=== PATIENT | male | born 1950 | race Caucasian/White ===

== ENCOUNTER 2024-04-23 17:34 | Inpatient (IN) | payer OTHER, MEDICAID ==
[~2024-04-23] VITALS: Ht 177.8 cm; Wt 121.1 kg
[2024-04-23 17:45] VITALS: BP_SYST 106; PULSE 120; RESP 22; TEMP 97.4; O2SAT 96
[2024-04-23] MEDS: NACL 0.9% 1,000 ML IV ONE (18:22)
[2024-04-23 18:25] LABS: BLOOD GAS BASE EXCESS -0.4 mmol/L (-3.0-3.0); BLOOD GAS HCO3 24.5 mmol/L (21.0-27.0); BLOOD GAS PCO2 41.2 mmHg (32.0-45.0); BLOOD GAS PH 7.393 (7.350-7.450)
[2024-04-23 18:26] LABS: BASOPHILS % (AUTO) 0.3 % (0.0-2.0); EOSINOPHILS # (AUTO) 0.1 K/uL (0.0-0.4); EOSINOPHILS % (AUTO) 0.6 % (0.0-4.0); HEMATOCRIT 36.8 % (36-54); HEMOGLOBIN 12.5 g/dL (14.0-18.0); LYMPHOCYTES # (AUTO) 0.5 K/uL (1.0-5.5); LYMPHOCYTES % (AUTO) 5.3 % (20.5-51.5); MEAN CORPUSCULAR HEMOGLOBIN 31 pg (27-31); MEAN CORPUSCULAR HGB CONC 34 % (32-36); MEAN CORPUSCULAR VOLUME 90 fL (79.0-98.0); MONOCYTES % (AUTO) 9.9 % (1.7-9.3); NEUTROPHILS # (AUTO) 8.3 K/uL (1.8-7.7); NEUTROPHILS % (AUTO) 83.9 % (40.0-70.0); PLATELET COUNT (AUTO) 252 K/uL (130-430); RED BLOOD CELL COUNT(AUTO) 4.07 MIL/uL (4.2-6.2); RED CELL DISTRIBUTION WIDTH 15.1 % (9.0-15.0); WHITE BLOOD COUNT (AUTO) 9.9 K/uL (4.8-10.8)
[2024-04-23 18:39] LABS: INR 1.1 (0.80-1.20); PROTHROMBIN TIME 11.3 SECS (9.5-12.5)
[2024-04-23 18:40] LABS: ALLEN'S TEST POSITIVE (P)
[2024-04-23 18:56] LABS: ALANINE AMINOTRANSFERASE 74 U/L (12-78); ALBUMIN 2.5 g/dL (3.4-4.8); ANION GAP 7 (5-15); ASPARTATE AMINOTRANSFERASE 59 U/L (10-37); BILIRUBIN,DIRECT 0.5 mg/dL (0.0-0.3); CALCIUM 8.2 mg/dL (8.4-11.0); CARBON DIOXIDE 28 mmol/L (23-29); CHLORIDE 99 mmol/L (98-107); CREATININE 2.09 mg/dL (0.55-1.30); GLUCOSE 179 mg/dL (74-106); POTASSIUM 4.2 mmol/L (3.5-5.1); SODIUM SERUM 134 mmol/L (136-145); TOTAL BILIRUBIN 1.2 mg/dL (0.0-1.0); TOTAL PROTEIN, SERUM 7.2 g/dL (6.4-8.3); UREA NITROGEN, BLOOD 27 mg/dL (8-21)
[2024-04-23] MEDS: guaiFENesin 200 MG/10 ML UDC PO ONE (19:00)
[2024-04-23] MEDS ORDERED: PIPERACILLIN/TAZOBACTAM 3.375 GM/VIAL (ZOSYN) IV ONE (19:26)
[2024-04-23] MEDS: PIPERACILLIN/TAZO 3.375 GM in D5W 50 ML IV ONE (19:36)
[2024-04-23 19:57] LABS: BILIRUBIN,URINE NEGATIVE (NEGATIVE); BLOOD, URINE NEGATIVE (NEGATIVE); CLARITY/URINE CLEAR (CLEAR); GLUCOSE,URINE TRACE (NEGATIVE); KETONES,URINE TRACE (NEGATIVE); LEUKOCYTE ESTERASE ,URINE NEGATIVE (NEGATIVE); NITRITE, URINE NEGATIVE (NEGATIVE); PROTEIN URINE 2+ (NEGATIVE)
[2024-04-23 20:03] LABS: BACTERIA,URINE RARE /HPF (None Seen); COLOR,URINE AMBER (YELLOW); MUCUS,URINE None Seen /LPF (None Seen); RBC,URINE 0-3 /HPF (0-3); WBC,URINE 0-3 /HPF (0-3)
[2024-04-23] MEDS ORDERED: CLOP75TA32 PO (20:44)
[2024-04-23] MEDS ORDERED: METO50TA7 PO (20:44)
[2024-04-23] MEDS ORDERED: METF-518 PO (20:44)
[2024-04-23] MEDS ORDERED: ISOS30TA85 PO (20:44)
[2024-04-23] MEDS ORDERED: NORT10CA PO (20:44)
[2024-04-23] MEDS ORDERED: IRBE1TAB PO (20:44)
[2024-04-23] MEDS ORDERED: NEU300 PO (20:44)
[2024-04-23] MEDS ORDERED: ATOR40TA68 PO (20:44)
[2024-04-23] MEDS ORDERED: FER300L PO (20:44)
[2024-04-23] MEDS ORDERED: HUM10VIA SUBCUT (20:44)
[2024-04-23] MEDS ORDERED: TAMS-11 PO (20:44)
[2024-04-23] MEDS ORDERED: DOCUSATE SODIUM 100 MG CAPSULE PO PRN (20:45)
[2024-04-23] MEDS ORDERED: ZOLPIDEM TARTRATE 5 MG TABLET PO PRN (20:45)
[2024-04-23] MEDS ORDERED: POTASSIUM CHLORIDE 20 MEQ TABLET.ER PO PRN (20:45)
[2024-04-23] MEDS ORDERED: MAGNESIUM SULFATE 50 ML IV PRN (20:45)
[2024-04-23] MEDS ORDERED: ONDANSETRON HCL 4 MG/2 ML VIAL IVP PRN (20:45)
[2024-04-23] MEDS ORDERED: MORPHINE 2 MG/ML INJ. SYRINGE IVP PRN ×2 (20:45)
[2024-04-23] MEDS ORDERED: LORazepam 2 MG/ML VIAL IVP PRN (20:45)
[2024-04-23] MEDS ORDERED: MUPIROCIN 2% TOPICAL OINTMENT 22 GM NS PRN (20:45)
[2024-04-23] MEDS ORDERED: ACETAMINOPHEN 500 MG TABLET PO PRN ×2 (21:00)
[2024-04-23 21:04] VITALS: BP_SYST 104; PULSE 74; O2SAT 95
[2024-04-23] MEDS: NACL 0.9% 1,000 ML IV SCH (21:10)
[2024-04-23] MEDS: AZITHROMYCIN 250 MG TABLET PO ONE (21:11)
[2024-04-23] MEDS: HEPARIN SODIUM,PORCINE 5,000 UNITS/ML VIAL SUBCUT SCH (21:17)
[2024-04-23] MEDS ORDERED: PIPERACILLIN/TAZO 3.375 GM in D5W 50 ML IV SCH (22:00)
[2024-04-23 22:59] VITALS: BP_SYST 104; PULSE 66; RESP 20; TEMP 98.6
[2024-04-23 23:00] VITALS: O2SAT 99
[2024-04-24 00:20] VITALS: BP_SYST 118; PULSE 66; RESP 20; TEMP 98.2; O2SAT 98
[2024-04-24] MEDS: guaiFENesin 200 MG/10 ML UDC PO PRN (01:10)
[2024-04-24 06:49] LABS: ANION GAP 11 (5-15); CALCIUM 8.4 mg/dL (8.4-11.0); CARBON DIOXIDE 26 mmol/L (23-29); CHLORIDE 100 mmol/L (98-107); CREATININE 1.78 mg/dL (0.55-1.30); GLUCOSE 124 mg/dL (74-106); POTASSIUM 4.1 mmol/L (3.5-5.1); SODIUM SERUM 137 mmol/L (136-145); UREA NITROGEN, BLOOD 25 mg/dL (8-21)
[2024-04-24 06:50] LABS: BASOPHILS % (AUTO) 0.3 % (0.0-2.0); EOSINOPHILS # (AUTO) 0.1 K/uL (0.0-0.4); EOSINOPHILS % (AUTO) 0.8 % (0.0-4.0); HEMATOCRIT 37.8 % (36-54); HEMOGLOBIN 12.5 g/dL (14.0-18.0); LYMPHOCYTES # (AUTO) 0.8 K/uL (1.0-5.5); LYMPHOCYTES % (AUTO) 9.1 % (20.5-51.5); MEAN CORPUSCULAR HEMOGLOBIN 30 pg (27-31); MEAN CORPUSCULAR HGB CONC 33 % (32-36); MEAN CORPUSCULAR VOLUME 92 fL (79.0-98.0); MONOCYTES # (AUTO) 0.8 K/uL (0.0-1.0); MONOCYTES % (AUTO) 9.2 % (1.7-9.3); NEUTROPHILS # (AUTO) 7.2 K/uL (1.8-7.7); NEUTROPHILS % (AUTO) 80.6 % (40.0-70.0); PLATELET COUNT (AUTO) 223 K/uL (130-430); RED BLOOD CELL COUNT(AUTO) 4.13 MIL/uL (4.2-6.2); RED CELL DISTRIBUTION WIDTH 15.2 % (9.0-15.0); WHITE BLOOD COUNT (AUTO) 8.9 K/uL (4.8-10.8)
[2024-04-24 07:44] VITALS: BP_SYST 137; PULSE 70; RESP 14; TEMP 97.7; O2SAT 96
[2024-04-24 09:14] VITALS: O2SAT 97
[2024-04-24] MEDS: cefTRIAXone 1 GM IVPB PREMIX 50 ML IV SCH (10:03)
[2024-04-24] MEDS: AZITHROMYCIN 250 MG TABLET PO SCH (10:04)
[2024-04-24] MEDS: ACETAMINOPHEN 500 MG TABLET PO PRN (10:19)
[2024-04-24] MEDS: INSULIN REGULAR, HUMAN 100 UNITS/ML, 3 ML VIAL (humuLIN R) SUBCUT PRN (11:56)
[2024-04-24 12:34] VITALS: BP_SYST 148; PULSE 73; RESP 18; TEMP 98.9; O2SAT 99
[2024-04-24 16:54] VITALS: BP_SYST 152; PULSE 67; RESP 18; TEMP 98.3; O2SAT 98
[2024-04-24 20:00] VITALS: BP_SYST 144; PULSE 73; RESP 18; TEMP 98.7; O2SAT 98
[2024-04-24] MEDS: NORTRIPTYLINE HCL 10 MG CAPSULE PO SCH (21:22)
[2024-04-24] MEDS: GABAPENTIN 300 MG CAPSULE PO SCH (21:23)
[2024-04-25] VITALS (7 sets, daily range): BP systolic 110–154; PULSE 47–76; RESP 15–20; TEMP 98–98.9; O2SAT 95–97
[2024-04-25 05:58] LABS: BASOPHILS % (AUTO) 0.5 % (0.0-2.0); EOSINOPHILS # (AUTO) 0.3 K/uL (0.0-0.4); EOSINOPHILS % (AUTO) 3.9 % (0.0-4.0); HEMATOCRIT 38.2 % (36-54); HEMOGLOBIN 12.8 g/dL (14.0-18.0); LYMPHOCYTES # (AUTO) 0.8 K/uL (1.0-5.5); LYMPHOCYTES % (AUTO) 12.6 % (20.5-51.5); MEAN CORPUSCULAR HEMOGLOBIN 31 pg (27-31); MEAN CORPUSCULAR HGB CONC 34 % (32-36); MEAN CORPUSCULAR VOLUME 92 fL (79.0-98.0); MONOCYTES # (AUTO) 0.5 K/uL (0.0-1.0); MONOCYTES % (AUTO) 7.8 % (1.7-9.3); NEUTROPHILS # (AUTO) 4.9 K/uL (1.8-7.7); NEUTROPHILS % (AUTO) 75.2 % (40.0-70.0); PLATELET COUNT (AUTO) 233 K/uL (130-430); RED BLOOD CELL COUNT(AUTO) 4.16 MIL/uL (4.2-6.2); RED CELL DISTRIBUTION WIDTH 15.1 % (9.0-15.0); WHITE BLOOD COUNT (AUTO) 6.6 K/uL (4.8-10.8)
[2024-04-25 06:51] LABS: ANION GAP 7 (5-15); CALCIUM 8.6 mg/dL (8.4-11.0); CARBON DIOXIDE 29 mmol/L (23-29); CHLORIDE 102 mmol/L (98-107); CREATININE 1.15 mg/dL (0.55-1.30); GLUCOSE 138 mg/dL (74-106); SODIUM SERUM 138 mmol/L (136-145); UREA NITROGEN, BLOOD 16 mg/dL (8-21)
[2024-04-25] MEDS: ATORVASTATIN 20 MG TABLET PO SCH (09:34)
[2024-04-25] MEDS: TAMSULOSIN HCL 0.4 MG CAP PO SCH (09:34)
[2024-04-25] MEDS: ISOSORBIDE MONONITRATE 30 MG TAB.ER.24H PO SCH (09:34)
[2024-04-25] MEDS: METOPROLOL SUCCINATE 50 MG TAB.SR.24H (TOPROL XL) PO SCH (09:38)
[2024-04-25] MEDS: IPRATROPIUM/ALBUTEROL SULFATE 3 ML AMPUL.NEB (DUONEB) INH PRN (11:08)
[2024-04-25] MEDS ORDERED: HYDROcodone/ACETAMIN 5-325 MG TAB (NORCO/ VICODIN) PO PRN (15:45)
[2024-04-25] MEDS: CLOPIDOGREL BISULFATE 75 MG TABLET PO ONE (16:55)
[2024-04-25] MEDS: HEPARIN SODIUM,PORCINE 5,000 UNITS/ML VIAL SUBCUT SCH (20:42)
[2024-04-26] VITALS (7 sets, daily range): BP systolic 133–158; PULSE 64–81; RESP 16–20; TEMP 97.3–98.9; O2SAT 95–97
[2024-04-26 05:42] LABS: BASOPHILS % (AUTO) 0.6 % (0.0-2.0); EOSINOPHILS # (AUTO) 0.2 K/uL (0.0-0.4); EOSINOPHILS % (AUTO) 3.2 % (0.0-4.0); HEMATOCRIT 38.4 % (36-54); HEMOGLOBIN 12.9 g/dL (14.0-18.0); LYMPHOCYTES # (AUTO) 0.9 K/uL (1.0-5.5); LYMPHOCYTES % (AUTO) 13.5 % (20.5-51.5); MEAN CORPUSCULAR HEMOGLOBIN 31 pg (27-31); MEAN CORPUSCULAR HGB CONC 34 % (32-36); MEAN CORPUSCULAR VOLUME 91 fL (79.0-98.0); MONOCYTES # (AUTO) 0.5 K/uL (0.0-1.0); MONOCYTES % (AUTO) 7.9 % (1.7-9.3); NEUTROPHILS # (AUTO) 4.8 K/uL (1.8-7.7); NEUTROPHILS % (AUTO) 74.8 % (40.0-70.0); PLATELET COUNT (AUTO) 251 K/uL (130-430); RED BLOOD CELL COUNT(AUTO) 4.21 MIL/uL (4.2-6.2); RED CELL DISTRIBUTION WIDTH 14.9 % (9.0-15.0); WHITE BLOOD COUNT (AUTO) 6.5 K/uL (4.8-10.8)
[2024-04-26 06:12] LABS: ANION GAP 9 (5-15); CALCIUM 8.9 mg/dL (8.4-11.0); CARBON DIOXIDE 28 mmol/L (23-29); CHLORIDE 101 mmol/L (98-107); CREATININE 0.99 mg/dL (0.55-1.30); GLUCOSE 166 mg/dL (74-106); POTASSIUM 3.8 mmol/L (3.5-5.1); SODIUM SERUM 138 mmol/L (136-145); UREA NITROGEN, BLOOD 14 mg/dL (8-21)
[2024-04-26] MEDS: CLOPIDOGREL BISULFATE 75 MG TABLET PO SCH (08:40)
[2024-04-26] MEDS ORDERED: LEVO750T64 PO (11:50)
== END 2024-04-26 17:50 | disposition home health service (06) | DRG 193 ==
LOC: SED 17:34 → STU 20:05 → SMU 04-25 22:21
PROVIDERS: ADMIT General Practice; ATTEND General Practice
DX: J15.9 Unspecified bacterial pneumonia (principal); G93.41 Metabolic encephalopathy; J96.01 Acute respiratory failure with hypoxia; N17.0 Acute kidney failure with tubular necrosis; E44.0 Moderate protein-calorie malnutrition; I13.0 Hypertensive heart and chronic kidney disease with heart failure and stage 1 through stage 4 chronic kidney disease, or unspecified chronic kidney disease; E11.21 Type 2 diabetes mellitus with diabetic nephropathy; E11.65 Type 2 diabetes mellitus with hyperglycemia; E66.9 Obesity, unspecified; I50.9 Heart failure, unspecified; I25.10 Atherosclerotic heart disease of native coronary artery without angina pectoris; E11.22 Type 2 diabetes mellitus with diabetic chronic kidney disease; N18.9 Chronic kidney disease, unspecified; Z86.73 Personal history of transient ischemic attack (TIA), and cerebral infarction without residual deficits; Z68.38 Body mass index [BMI] 38.0-38.9, adult; Z79.899 Other long term (current) drug therapy
CPT/HCPCS: 36415; 70450-TC; 71045; 76770; 80048; 80076; 81000; 81001; 81015; 82803; 82948; 83037; 83605; 83735; 83880; 84484; 85025; 85610; 85730; 87040; 87081; 87086; 93005; 93970; 94070; 94640; 94760; 96365; 97110-GP; 97116-GP; 97530-GP; 99285; G0378; J0696; J1644; J1815; J2543; Q0144